=== PATIENT | male | born 1970 | race Caucasian/White ===

== ENCOUNTER 2019-07-11 19:47 | Emergency (ER) | payer OTHER ==
[~2019-07-11] VITALS: Ht 180.3 cm; Wt 121.2 kg
[2019-07-11 19:47] VITALS: BP 138/79
--- NOTE | 2019-07-11 20:48 | PHYS DOC ---
Past History Past Medical History: No Pertinent History Additional Past Surgical Histo: semi colostomy Alcohol Use: Heavy General Adult EDM: Chief Complaint: COUGH HPI: HPI: Patient is a 48-year-old male who presents secondary to concern for cough along with some chills for the past 2 days. He has no known exposures to anyone with coronavirus but is obviously concerned that he may have contracted this. He has no shortness of breath or chest pain. No medications taken prior to arrival. The patient is also very anxious in the examination room. Review of Systems: Review of Systems: All other systems negative except as documented in HPI. Heart Score: Risk Factors: Risk Factors: DM, Current or recent (<one month) smoker, HTN, HLP, family history of CAD, obesity. Risk Scores: Score 0 - 3: 2.5% MACE over next 6 weeks - Discharge Home Score 4 - 6: 20.3% MACE over next 6 weeks - Admit for Clinical Observation Score 7 - 10: 72.7% MACE over next 6 weeks - Early Invasive Strategies Physical Exam: PE: Constitutional: Well developed, well nourished, no acute distress, extremely anxious HENT: Normocephalic, atraumatic, bilateral external ears normal, oropharynx moist, no oral exudates, nose normal. [] Eyes: PERRLA, EOMI, conjunctiva normal, no discharge. [] Neck: Normal range of motion, no tenderness, supple, no stridor. [] Cardiovascular:Heart rate regular rhythm, no murmur [] Lungs & Thorax: Bilateral breath sounds clear to auscultation [] Abdomen: Bowel sounds normal, soft, no tenderness, no masses, no pulsatile masses. [] Skin: Warm, dry, no erythema, no rash. [] Back: No tenderness, no CVA tenderness. [] Extremities: No tenderness, no cyanosis, no clubbing, ROM intact, no edema. [] Neurologic: Alert and oriented X 3, normal motor function, normal sensory function, no focal deficits noted. [] Psychologic: Affect normal, judgement normal, mood normal. [] Current Patient Data: Vital Signs: Vital Signs Date Time Temp Pulse Resp B/P (MAP) Pulse Ox O2 Delivery O2 Flow Rate FiO2 07/11/19 19:47 98.2 89 20 138/79 (98) 98 Room Air EKG: EKG: [] Radiology/Procedures: Radiology/Procedures: CHEST AP ONLY 07/11/2019 8:43 PM INDICATION: Cough, chest pain COMPARISON: None available TECHNIQUE: Portable frontal view of the chest is provided. FINDINGS: The cardiomediastinal silhouette is within normal limits. Lungs are clear. There are no significant pleural effusions. There is no pulmonary vascular congestion. No pneumothorax. IMPRESSION: There is no acute cardiopulmonary process.[] Course & Med Decision Making: Course & Med Decision Making This patient is seen for a cough along with some fever intermittently for the past couple of days. Will obtain chest x-ray for further evaluation. We discussed possible symptoms of coronavirus and testing options. PPE was worn in this patient examination room. Patient's vital signs are stable. Dragon Disclaimer: Dragon Disclaimer: This electronic medical record was generated, in whole or in part, using a voice recognition dictation system. Departure Departure: Impression: Primary Impression: Cough Disposition: 01 HOME, SELF-CARE Condition: STABLE Referrals: RHONDA KINCAID MD (PCP) Please follow up as needed for ongoing symptoms Additional Instructions: He may take Tylenol and ibuprofen for fever or chills. He should return to the ER if you develop difficulty breathing. You should not go to work until your symptoms have resolved. HIRAL GÓMEZ DO Jul 11, 2019 20:47
--- NOTE | 2019-07-11 21:37 | RAD ---
CHEST AP ONLY 07/11/2019 8:43 PM INDICATION: Cough, chest pain COMPARISON: None available TECHNIQUE: Portable frontal view of the chest is provided. FINDINGS: The cardiomediastinal silhouette is within normal limits. Lungs are clear. There are no significant pleural effusions. There is no pulmonary vascular congestion. No pneumothorax. IMPRESSION: There is no acute cardiopulmonary process. Electronically signed by: Yaneth Love MD (07/11/2019 9:34 PM) [facility]
== END 2019-07-11 21:48 | disposition home or self-care (01) ==
LOC: ER 19:47
DX: R05 Cough (principal); R50.9 Fever, unspecified
CPT/HCPCS: 71045; 99283

== ENCOUNTER 2019-10-13 18:13 | Emergency (ER) | payer SELFPAY ==
[~2019-10-13] VITALS: Ht 188 cm; Wt 120.0 kg
--- NOTE | 2019-10-13 18:17 | PHYS DOC ---
Past History Past Medical History: No Pertinent History, Cancer, Other Past Surgical History: Other Additional Past Surgical Histo: semi colostomy Smoking: Cigarettes Alcohol Use: Heavy General Adult HPI: HPI: ".. I was out fishing all day on ....I fell... I was a little shaky.. some gave me some candy... and I did feel better after that... Then on . I fell hitting my head at home.. I still got a bruise on my [place] area... " Patient is a 49 year old male who presents with above hx and complaints two falls because of weakness. Patient does not recall any dysrhythmias before the fall. Does recall being very weak and dizzy. Patient denies total loss of consciousness as a cause of fall. Patient denies any history of specific ill contacts. Does have history of removal of colon due to polyps 1996. Patient denies recent travel. Patient was noted to have accelerated hypertension on arrival to the emergency department. Patient denies has a history of h ypertension does not take meds for it. Patient denies any history of diabetes but there is a history of diabetes in his family with his mother. Patient does smoke a pack of cigarettes a day. Normally follows with Dr. Alvarado.. Review of Systems: Review of Systems: Constitutional: Denies fever or chills Eyes: Denies change in visual acuity HENT: Denies nasal congestion or sore throat Respiratory: Denies cough or shortness of breath Cardiovascular: Denies chest pain or edema GI: Denies abdominal pain, nausea, vomiting, bloody stools or diarrhea : Denies dysuria Musculoskeletal: Denies back pain or joint pain Integument: Denies rash Neurologic: Denies headache, focal weakness or sensory changes Hx. of dizzy to falls. Endocrine: Denies polyuria or polydipsia Lymphatic: Denies swollen glands Psychiatric: Denies depression or anxiety Heart Score: HEART Score for Chest Pain: HEART Score for Chest Pain Response (Comments) Value History Slighlty/Non-Suspicious 0 ECG Normal 0 Age >45 - < 65 1 Risk Factors 1 or 2 Risk Factors 1 Troponin < Normal Limit 0 Total 2 Risk Factors: Risk Factors: DM, Current or recent (<one month) smoker, HTN, HLP, family history of CAD, obesity. Risk Scores: Score 0 - 3: 2.5% MACE over next 6 weeks - Discharge Home Score 4 - 6: 20.3% MACE over next 6 weeks - Admit for Clinical Observation Score 7 - 10: 72.7% MACE over next 6 weeks - Early Invasive Strategies Family History: Family History: Diabetes in mother Current Medications: Current Meds: See nursing for home meds Allergies: Allergies: No known drug allergies Physical Exam: PE: Constitutional: Moderate acute distress, non-toxic appearance. [] HENT: Normocephalic, contusion to restoration area left, and left side of face, bilateral external ears normal, oropharynx moist, no oral exudates, nose normal. [] Eyes: PERRLA, EOMI, conjunctiva normal, no discharge. [] Neck: Normal range of motion, no tenderness, supple, no stridor. [] Cardiovascular:Heart rate regular rhythm, no murmur [] PMI to the left. Lungs & Thorax: Bilateral breath sounds equal with some basilar scattered crackles and wheezes auscultation [] Abdomen: Bowel sounds normal, soft, no tenderness, no masses, no pulsatile ma sses. Obese. Large scar Skin: Warm, dry, no erythema, no rash. [] Back: No tenderness, no CVA tenderness. [] Extremities: Bilateral knee tenderness, no cyanosis, no clubbing, ROM intact, tr kia ankle edema. [No cording appreciated in legs.] Neurologic: Alert and oriented X 3, moves extremities on request, does have distal sensory, no focal deficits noted. [] DTR + 2, ambulatory with out problems. Psychologic: Affect anxious, judgement normal, mood normal. [] EKG: EKG: My interpretation EKG shows sinus rhythm at 78 bpm. No findings of acute STEMI with contralateral changes. [] Radiology/Procedures: Radiology/Procedures: [[address] [address] IMAGING REPORT Signed PATIENT: ALBERTO HERNANDEZ EACCOUNT: [id number] : 1970 LOCATION: ER AGE: 49 SEX: M EXAM STATUS: REG ER ORD. PHYSICIAN: SHANITA LUCAS MD REASON: dyspnea, OMNI 350, 100ml PROCEDURE: CT ANGIOGRAPHY CHEST EXAM: CT Pulmonary Angiogram INDICATION: Reason: dyspnea, OMNI 350, 100ml / Spl. Instructions: / History: TECHNIQUE: Multi-detector row images were acquired from the thoracic inlet through the upper abdomen with the use of IV contrast. Sagittal and coronal images were acquired from the transaxial data. MIP images of the pulmonary arteries were obtained. All CT scans performed at this facility utilize dose optimization techniques as appropriate to the exam, including the following: Automated exposure control and adjustment of the mA and/or KV according to patient size (this includes techniques or standardized protocols for targeted exams where dose is indication/reason for exam). IV CONTRAST: Administered COMPARISON: Earlier same day chest x-ray. FINDINGS: PULMONARY ARTERIES: There is suboptimal but adequate opacification of the pulmonary arteries. No pulmonary emboli are identified. CARDIOVASCULAR: Unremarkable Aorta is normal caliber. MEDIASTINUM & KINJAL: No adenopathy or masses. LUNGS: Lung volumes are low but no pulmonary infiltrate, nodule, or other focal abnormality is identified PLEURAL SPACE: No pleural effusions or pneumothorax. OSSEOUS & SOFT TISSUE: Unremarkable ABDOMEN: The visualized portions of the upper abdomen are unremarkable. IMPRESSION: No evidence of pulmonary emboli or other acute cardiopulmonary process. Electronically signed by: Edie Goodman MD (10/13/2019 9:37 PM) [facility] [place], [place] DICTATED AND SIGNED BY: EDIE GOODMAN MD DATE: 10/13/192136 CC: SHANITA LUCAS MD; RHONDA ALVARADO MD ~ ][place] [address] IMAGING REPORT Signed PATIENT: ALBERTO HERNANDEZ EACCOUNT: [id number] : 1970 LOCATION: ER AGE: 49 SEX: M EXAM STATUS: REG ER ORD. PHYSICIAN: SHANITA LUCAS MD REASON: HYPERTENSION, EVERYDAY SMOKER. PROCEDURE: CHEST PA & LATERAL CHEST PA LATERAL History: Reason: HYPERTENSION, EVERYDAY SMOKER. / Spl. Instructions: / History: Comparison: July 11, 2019 Findings: No consolidation or pleural effusion. Normal heart size. No pneumothorax. Impression: 1. No acute cardiopulmonary process. Electronically signed by: Param Barraza DO (10/13/2019 7:40 PM) [facility] DICTATED AND SIGNED BY: PARAM BARRAZA DO DATE: 10/13/191939 CC: SHANITA LUCAS MD; RHONDA ALVARADO MD ~ [place] [address] IMAGING REPORT Signed PATIENT: ALBERTO HERNANDEZ EACCOUNT: [id number] : 1970 LOCATION: ER AGE: 49 SEX: M EXAM STATUS: REG ER ORD. PHYSICIAN: SHANITA LUCAS MD REASON: fall, weakness PROCEDURE: CT HEAD AND CERVICAL SPINE WO CT HEAD AND CERVICAL SPINE WO History: Reason: fall, weakness / Spl. Instructions: / History: Pain. Comparison: None. Technique: Noncontrast CT imaging was performed of the head and cervical spine. Coronal and sagittal reconstructions were performed. Exposure: One or more of the following individualized dose reduction techniques were utilized for this examination: 1. Automated exposure control 2. Adjustment of the mA and/or kV according to patient size 3. Use of iterative reconstruction technique. Findings: Head CT: No intracranial hemorrhage. No mass effect. No hydrocephalus. Right inferior basal ganglia hypodensity, likely prominent perivascular space. Imaged orbits are unremarkable. Imaged paranasal sinuses and mastoid air cells are clear. No acute calvarial fracture. Cervical spine CT: Normal vertebral body height and alignment. No fracture. Mild cervical degenerative disc changes. No high-grade canal or neuroforaminal narrowing. Soft tissues unremarkable. Impression: Head CT: 1. No acute intracranial abnormality. Cervical spine CT: 1. No acute fracture or subluxation of the cervical spine. Electronically signed by: Param Barraza DO (10/13/2019 7:19 PM) [facility] Course & Med Decision Making: Course & Med Decision Making Pertinent Labs and Imaging studies reviewed. (See chart for details) Patient declines admission for observation and further work-up. Encourage patient to follow-up with primary care. Encourage patient to have better control of his diabetes. Patient to follow-up his elevated blood pressure. Concerns of the elevated d-dimer explained to patient. Patient exhibits UCAR capacity. Patient to follow elevated bilirubin total 1.8 and direct 0.4. Encourage patient stop smoking. Encourage patient stop use marijuana. Patient take an box as directed for urinary tract infection. Explained to patient that sometimes a urinary tract infection in a male that is circumcised with reflex STD. This must be followed up closely. Patient to self isolate. Wear a mask anytime he is out that covers his nose and mouth. Patient return if any concerns. Patient is to wear clonidine patch until follow-up with Dr. Alvarado. Patient follow-up pending labs. Patient consider outpatient stress testing. Impression: 1. Falls x 2 2. Accelerated HTN 3. Dizzy 4. Hypo-magnesium 1.5 5. Elevated d-dimer 1.10 6. Diabetes 146 7. Elevated CK 314 8. Elevated bilirubin total and direct 1.8/0.4 9. Mild hypokalemia 3.3 10. Head injury-concussion 11. UTI 12. Tobacco and marijuana use [] Dragon Disclaimer: Dragon Disclaimer: This electronic medical record was generated, in whole or in part, using a voice recognition dictation system. Departure Departure: Disposition: 01 HOME/RESIDENCE PRIOR TO ADM Condition: STABLE Referrals: RHONDA ALVARADO MD (PCP) Scripts Cephalexin (KEFLEX) 500 Mg Capsule 500 MG PO TID for uti for 7 Days, BOTTLE Prov: SHANITA LUCAS MD 10/13/19 Justification of Admission: Justification of Admission: Justification of Admission Dx: N/A Dragon Disclaimer This chart was dictated in whole or in part using Voice Recognition software in a busy, high-work load, and often noisy Emergency Department environment. It may contain unintended and wholly unrecognized errors or omissions. SHANITA ULCAS MD Oct 13, 2019 18:17
[2019-10-13] MEDS ORDERED: cloNIDine TTS-2 1 PATCH PATCH TD ONE ×2 (18:33→18:45)
[2019-10-13] MEDS ORDERED: IV RINGERS SOLUTION,LACTATED 1,000 ML IV SCH (18:58)
--- NOTE | 2019-10-13 19:22 | RAD ---
CT HEAD AND CERVICAL SPINE WO History: Reason: fall, weakness / Spl. Instructions: / History: Pain. Comparison: None. Technique: Noncontrast CT imaging was performed of the head and cervical spine. Coronal and sagittal reconstructions were performed. Exposure: One or more of the following individualized dose reduction techniques were utilized for this examination: 1. Automated exposure control 2. Adjustment of the mA and/or kV according to patient size 3. Use of iterative reconstruction technique. Findings: Head CT: No intracranial hemorrhage. No mass effect. No hydrocephalus. Right inferior basal ganglia hypodensity, likely prominent perivascular space. Imaged orbits are unremarkable. Imaged paranasal sinuses and mastoid air cells are clear. No acute calvarial fracture. Cervical spine CT: Normal vertebral body height and alignment. No fracture. Mild cervical degenerative disc changes. No high-grade canal or neuroforaminal narrowing. Soft tissues unremarkable. Impression: Head CT: 1. No acute intracranial abnormality. Cervical spine CT: 1. No acute fracture or subluxation of the cervical spine. Electronically signed by: Param Barraza DO (10/13/2019 7:19 PM) [facility]
[2019-10-13 19:29] LABS: BASO % 0 % (0-3); EOS % 1 % (0-3); HEMATOCRIT 40.5 % (39.0-53.0); HEMOGLOBIN 13.2 g/dL (13.0-17.5); LYMPH % 21 % (24-48); MEAN CORPUSCULAR HEMOGLOBIN 28 pg (25-35); MEAN CORPUSCULAR HGB CONC 33 g/dL (31-37); MEAN CORPUSCULAR VOLUME 86 fL (79-100); MONO # 0.8 x10^3/uL (0.0-1.1); MONO % 9 % (0-9); NEUT # 6.8 x10^3uL (1.8-7.7); NEUT % 70 % (31-73); PLATELET COUNT 211 x10^3/uL (140-400); RED CELL DISTRIBUTION WIDTH 20.8 % (11.5-14.5); WHITE BLOOD COUNT 9.8 x10^3/uL (4.0-11.0)
[2019-10-13] MEDS ORDERED: cloNIDine HCL 0.1 MG TABLET PO ONE (19:30)
[2019-10-13 19:36] LABS: CALCIUM 9.2 mg/dL (8.5-10.1); CREATININE 1.2 mg/dL (0.7-1.3); GFR 64.4; POTASSIUM 3.3 mmol/L (3.5-5.1)
--- NOTE | 2019-10-13 19:43 | RAD ---
CHEST PA LATERAL History: Reason: HYPERTENSION, EVERYDAY SMOKER. / Spl. Instructions: / History: Comparison: July 11, 2019 Findings: No consolidation or pleural effusion. Normal heart size. No pneumothorax. Impression: 1. No acute cardiopulmonary process. Electronically signed by: Param Barraza DO (10/13/2019 7:40 PM) [facility] [place]
[2019-10-13 19:48] LABS: ALBUMIN 3.4 g/dL (3.4-5.0); DIRECT BILIRUBIN 0.4 mg/dL (0.0-0.2); MAGNESIUM 1.5 mg/dL (1.8-2.4); TOTAL BILIRUBIN 1.8 mg/dL (0.2-1.0); TOTAL PROTEIN 7.5 g/dL (6.4-8.2)
[2019-10-13 19:57] LABS: PLT ESTIMATE ADEQUATE (ADEQUATE)
[2019-10-13 19:58] LABS: ANISOCYTOSIS MOD; HYPOCHROMIA SLIGHT; MICROCYTOSIS SLIGHT; POLYCHROMASIA PRESENT
[2019-10-13] MEDS ORDERED: IV RINGERS SOLUTION,LACTATED 1,000 ML IV ONE (20:00)
[2019-10-13 20:27] LABS: BARBITURATES NEG (NEG); BENZODIAZEPINES NEG (NEG); CANNABINOIDS POS (NEG); COCAINE NEG (NEG); METHADONE NEG (NEG); OPIATES NEG (NEG); PHENCYCLIDINE NEG (NEG)
[2019-10-13 20:29] LABS: AMPHETAMINE/METHAMPHETAMINE NEG (NEG)
[2019-10-13] MEDS ORDERED: ENOXAPARIN ** NOTE DOSE ** SYRINGE SQ ONE (20:30)
[2019-10-13] MEDS ORDERED: MAGNESIUM SULFATE 2GM 50 ML IV ONE (20:30)
[2019-10-13] MEDS ORDERED: CONTRAST GIVEN MC PRN (20:30)
[2019-10-13] MEDS ORDERED: IOHEXOL 350 MG/ML 100 ML VIAL. IV ONE (20:30)
[2019-10-13 20:36] LABS: BACTERIA,URINE MOD /HPF (0-FEW); BILIRUBIN,URINE MOD (NEG); CLARITY,URINE CLEAR; COLOR,URINE AMBER; GLUCOSE,URINE NEG (NEG); NITRITE,URINE POS (NEG); SQUAMOUS EPITHELIAL CELL,UR MOD /LPF; WBC,URINE 20-40 /HPF (0-4)
--- NOTE | 2019-10-13 21:40 | RAD ---
EXAM: CT Pulmonary Angiogram INDICATION: Reason: dyspnea, OMNI 350, 100ml / Spl. Instructions: / History: TECHNIQUE: Multi-detector row images were acquired from the thoracic inlet through the upper abdomen with the use of IV contrast. Sagittal and coronal images were acquired from the transaxial data. MIP images of the pulmonary arteries were obtained. All CT scans performed at this facility utilize dose optimization techniques as appropriate to the exam, including the following: Automated exposure control and adjustment of the mA and/or KV according to patient size (this includes techniques or standardized protocols for targeted exams where dose is indication/reason for exam). IV CONTRAST: Administered COMPARISON: Earlier same day chest x-ray. FINDINGS: PULMONARY ARTERIES: There is suboptimal but adequate opacification of the pulmonary arteries. No pulmonary emboli are identified. CARDIOVASCULAR: Unremarkable Aorta is normal caliber. MEDIASTINUM & KINJAL: No adenopathy or masses. LUNGS: Lung volumes are low but no pulmonary infiltrate, nodule, or other focal abnormality is identified PLEURAL SPACE: No pleural effusions or pneumothorax. OSSEOUS & SOFT TISSUE: Unremarkable ABDOMEN: The visualized portions of the upper abdomen are unremarkable. IMPRESSION: No evidence of pulmonary emboli or other acute cardiopulmonary process. Electronically signed by: Anirudh Goodman MD (10/13/2019 9:37 PM) [facility] [place]
--- NOTE | 2019-10-13 21:42 | EKG ---
[address] [address] Test Date: 2019-10-13 Test Time: 19:06:39 Pat Name: ALBERTO HERNANDEZ Department: Room: Gender: M Studio Technician Video Operator: : 1970 Requested By: SHANITA LUCAS Order Number: [id number] Reading MD: Measurements Intervals [place] Rate: 78 P: -16 CT: 148 QRS: 26 QRSD: 92 T: 48 QT: 402 QTc: 462 Interpretive Statements SINUS RHYTHM NORMAL ECG RI6.02 No previous ECG available for comparison
[2019-10-13] MEDS ORDERED: ONDANSETRON PF 4 MG/2 ML VIAL. IVP ONE (22:30)
[2019-10-13] MEDS ORDERED: metroNIDAZOLE 500 MG TABLET PO ONE (22:30)
[2019-10-13] MEDS ORDERED: AZITHROMYCIN 250 MG TABLET. PO ONE (22:30)
[2019-10-13] MEDS ORDERED: CEPH-264 PO (22:39)
[2019-10-13] MEDS ORDERED: cefTRIAXone SODIUM 1 GM VIAL ONE (22:53)
[2019-10-13] MEDS ORDERED: IV NORMAL SALINE 50ML 50 ML ONE (22:53)
[2019-10-13 23:30] VITALS: BP 158/84
[2019-10-14 10:27] LABS: THYROID STIM HORMONE (TSH) 2.064 uIU/mL (0.358-3.740)
== END 2019-10-13 23:51 | disposition home or self-care (01) ==
LOC: ER 18:13
DX: S06.0X0A Concussion without loss of consciousness, initial encounter (principal); I10 Essential (primary) hypertension; R42 Dizziness and giddiness; E83.42 Hypomagnesemia; E11.9 Type 2 diabetes mellitus without complications; R79.1 Abnormal coagulation profile; R94.4 Abnormal results of kidney function studies; E80.7 Disorder of bilirubin metabolism, unspecified; E87.6 Hypokalemia; F17.210 Nicotine dependence, cigarettes, uncomplicated; F12.90 Cannabis use, unspecified, uncomplicated; F10.20 Alcohol dependence, uncomplicated; Y90.9 Presence of alcohol in blood, level not specified; W18.39XA Other fall on same level, initial encounter; Y93.89 Activity, other specified; Y92.89 Other specified places as the place of occurrence of the external cause; Y99.8 Other external cause status
CPT/HCPCS: 36415; 70450; 71046; 71275; 72125; 80048; 80061; 80076; 80307; 81001; 82550; 83690; 83735; 83880; 84443; 84484; 85025; 85379; 85610; 85730; 86140; 86705; 86709; 86803; 87086; 87340; 87491; 87591; 93005; 96361; 96365; 96366; 96367; 96372; 96375; 99285; J0456; J0696; J1650; J2405; J3475; J7120; Q9967

== ENCOUNTER 2021-05-21 11:36 | Emergency (ER) | payer SELFPAY ==
[~2021-05-21] VITALS: Ht 180.3 cm; Wt 113.6 kg
[~2021-05-21 11:36] MED LIST: CEPH-264 PO
[2021-05-21 11:50] VITALS: BP 164/100
[2021-05-21] MEDS ORDERED: AMOX1TAB11 PO (11:55)
[2021-05-21] MEDS ORDERED: HYDR-2155 PO (11:55)
--- NOTE | 2021-05-21 11:56 | PHYS DOC ---
Past History Past Medical History: No Pertinent History, Cancer, Other Additional Past Medical Histor: Possible Diabetic* per pt (BENJAMIN AREVALO APRN) Past Surgical History: Other Additional Past Surgical Histo: semi colostomy (BENJAMIN AREVALO APRN) Smoking: Cigarettes Alcohol Use: Sober (BENJAMIN AREVALO APRN) General Adult EDM: Chief Complaint: DENTAL PROBLEM HPI: HPI: Patient is a 50-year-old male who presents to the emergency department for dental pain that has been going on for 1 month. Patient reports that this morning the pain increased and he has had swelling to his right lower jaw. Patient rates his pain 10 out of 10. He took ibuprofen at 10:00. He denies any fevers, nausea, vomiting, shortness of breath, inability to swallow or difficulty swallowing. He does not have a dentist. (BENJAMIN AREVALO APRN) Review of Systems: Review of Systems: Constitutional: negative unless reported in HPI Eyes: negative unless reported in HPI HENT: negative unless reported in HPI Respiratory: negative unless reported in HPI Cardiovascular: negative unless reported in HPI GI: negative unless reported in HPI : negative unless reported in HPI Musculoskeletal: negative unless reported in HPI Integument: negative unless reported in HPI Neurologic: negative unless reported in HPI Endocrine: negative unless reported in HPI Lymphatic: negative unless reported in HPI Psychiatric: negative unless reported in HPI (BENJAMIN AREVALO APRN) Allergies: Allergies: Allergies Coded Allergies Type Severity Reaction Last Updated Verified No Known Drug Allergies 10/13/19 No (BENJAMIN AREVALO APRN) Physical Exam: PE: Constitutional: Well developed, well nourished, no acute distress, non-toxic appearance. [] HENT: Normocephalic, atraumatic, bilateral external ears normal, uvula midline, no trismus, no phonation changes, several areas of broken teeth with dental caries, patient has dental caries to right lower teeth and swelling to his gums and right lower jaw, no visible abscess, patient maintaining secretions, oropharynx moist, no oral exudates, nose normal. [] Eyes: PERRL, EOMI, conjunctiva normal, no discharge. [] Neck: Normal range of motion, no tenderness, supple, no stridor. [] Cardiovascular:Heart rate regular rhythm, no murmur [] Lungs & Thorax: Bilateral breath sounds clear to auscultation [] Abdomen: Soft and obese Skin: Warm, dry, no erythema, no rash. [] Back: Normal range of motion Extremities: No tenderness, no cyanosis, no clubbing, ROM intact, no edema. [] Neurologic: Alert and oriented X 3, normal motor function, normal sensory function, no focal deficits noted. [] Psychologic: Affect normal, judgement normal, mood normal. [] (BENJAMIN AREVALO APRN) EKG: EKG: [] (BENJAMIN AREVALO APRN) Radiology/Procedures: Radiology/Procedures: [] (BENJAMIN AREVALO APRN) Heart Score: C/O Chest Pain: N/A Risk Factors: Risk Factors: DM, Current or recent (<one month) smoker, HTN, HLP, family history of CAD, obesity. Risk Scores: Score 0 - 3: 2.5% MACE over next 6 weeks - Discharge Home Score 4 - 6: 20.3% MACE over next 6 weeks - Admit for Clinical Observation Score 7 - 10: 72.7% MACE over next 6 weeks - Early Invasive Strategies (BENJAMIN AREVALO APRN) Course & Med Decision Making: Course & Med Decision Making Pertinent Labs and Imaging studies reviewed. (See chart for details) [] Patient presents to the emergency department with dental pain and swelling to his right lower jaw. Patient has multiple areas of broken teeth and dental caries, there is no visible abscess on physical exam. Patient will be treated with pain medication and an antibiotic. He does not have a dentist and he will be referred to a dental clinic. I discussed with patient all findings as well as the need to follow-up with PCP for further evaluation and treatment or return to the ER if any new or worsening symptoms. Strict return precautions were also discussed at length. Patient voiced understanding and agreement with the plan. Patient is hemodynamically stable at the time of disposition. (BENJAMIN AREVALO APRN) Course & Med Decision Making I was the Attending physician on the above date of service of this patient. This patient was evaluated, examined, treated, and dispositioned from the emergency department by the mid-level practitioner. Although I was working at the time , no assistance was requested. Electronically signed, Connor Alexander DO (CONNOR ALEXANDER DO) Kel Disclaimer: Kel Disclaimer: This electronic medical record was generated, in whole or in part, using a voice recognition dictation system. (BENJAMIN AREVALO APRN) Departure Departure: Impression: Primary Impression: Dental abscess Disposition: HOME / SELF CARE / HOMELESS Condition: GOOD Referrals: PCP,DIANA (PCP) Patient Instructions: Dental Abscess, Dental Caries Additional Instructions: You were seen in the emergency department for dental pain. You have multiple areas of dental decay which have become infected. This will be treated with an antibiotic. Please start and finish the antibiotic completely. For pain medication you are being discharged home with a medication called [place]. This medication is hydrocodone and Tylenol combination tablet. Do not take any additional Tylenol with this medication. This medication may cause sedation so do not take when you need to be alert, driving a vehicle or with alcohol. You can continue to take ibuprofen at home. Follow-up with one of the dentist provided on this list as soon as possible. Return to the emergency department if you develop high fevers refractory to treatment, worsening of your pain, intractable nausea or vomiting, shortness of breath, inability to swallow or maintaining your secretions, weakness or any new or worsening concerns. Scripts Hydrocodone Bit/Acetaminophen (HYDROCODONE-APAP 5-325 ) 1 Each Tablet 1 TAB PO PRN Q6HRS PRN for PAIN for 2 Days, #8 TAB 0 Refills Prov: BENJAMIN AREVALO APRN 05/21/21 Amoxicillin/Potassium Clav (AMOX TR-K CLV 875-125 MG TAB) 1 Each Tablet 1 TAB PO BID for infection for 10 Days, #20 TAB 0 Refills Prov: BENJAMIN AREVALO APRN 05/21/21 BENJAMIN AREVALO APRN May 21, 2021 11:56 CONNOR ALEXANDER DO May 22, 2021 06:05
[2021-05-21] MEDS ORDERED: AMOXICILLIN/K CLAV 875/125MG TABLET. PO ONE (12:00)
== END 2021-05-21 12:06 | disposition home or self-care (01) ==
LOC: ER 11:36
DX: K04.7 Periapical abscess without sinus (principal); F17.210 Nicotine dependence, cigarettes, uncomplicated
CPT/HCPCS: 99283